=== PATIENT | male | born 1960 | race Caucasian/White ===

== ENCOUNTER 2021-07-25 09:39 | Outpatient (CLI) | payer SELFPAY ==
--- NOTE | 2021-07-25 | IMM_PTH ---
PATIENT: SANJANA MIRANDA LOC: [facility] U#:[id number] AGE/SX: 60/M ROOM: RE07/25/[address]: Dr. Anselmo Rausch MD : 1960 BED: DIS: 07/25/2021 SPEC #: [id number] RECD: 07/26/21 11:56 STATUS: AMNA REMari #: [id number] LIAT: 07/25/21 00:[address]: Anselmo Rausch DEPT: IMMUNOHISTOCHEMISTRY RECD BY: Zoie Strickland ENTERED: 07/26/21 11:57 SP TYPE: IMMUNO OTHR DR: BRIANNE Leslie Tissues: Neck, NOS Procedures: CD20 (add) CD3 (add) CD43 (add) CD45 (add) CD5 (add) CD79A (add) Pankeratin (initial) PHYSICIAN & INSTITUTION [place] [id number] SPECIMEN INFORMATION: Tissue Source: Left neck mass Clinical Info: Left neck mass Specimen Number: [id number] CPT code: 31845, 24163 x6 METHODOLOGY: Deparaffinized sections of prefer/formalin-fixed tissue or PAP/DQ stained slides are incubated with monoclonal/polyclonal antibodies/oligonucleotide probes. Localization is made via biotin free immunoperoxidase method. Appropriate controls are performed and reacted as expected. Results on target cell population are indicated in the following table: RESULTS: ANTIBODY / CLONE RESULT AE1-3 (AE1/AE3/PCK26) negative CD3 (PS1) negative CD5 (SP10) negative CD20 (L26) positive CD43 (L60) positive, focal CD45 (RP2/18) positive CD79a (11E3) positive These tests were developed and their performance characteristics determined by [facility]. They may not have been cleared or approved by the U.S. Food and Drug Administration. The FDA has determined that such clearance or approval is not necessary. The above immunohistochemical/dualISH markers are ordered and reviewed by the Pathologist. INTERPRETATION: Left neck mass, fine needle aspiration: Consistent with atypical B-cell lymphoproliferative disorder. AM:mike 07/27/2021
--- NOTE | 2021-07-25 10:00 | ASPOS_PTH ---
PATIENT: SANJANA MIRANDA LOC: [facility] U#:[id number] AGE/SX: 60/M ROOM: RE07/25/[address]: Dr. Anselmo Rausch MD : 1960 BED: DIS: 07/25/2021 SPEC #: [id number] RECD: 07/25/21 10:43 STATUS: AMNA COURTNEY #: [id number] LIAT: 07/25/21 10:[address]: Anselmo Rausch DEPT: CYTOLOGY RECD BY: Becca Bernard ENTERED: 07/25/21 10:44 SP TYPE: ASP HERE OTHR DR: BRIANNE Leslie Tissues: Neck, NOS Procedures: Surgery Specimen Level IV Cytology Other Fine Needle Asp on Site HEADER OPERATION: Fine needle aspiration left neck mass PRE-OP DIAGNOSIS: Left neck mass TISSUE SUBMITTED: Left neck mass FNA DIAGNOSIS CYTOLOGY Fine needle aspiration, left neck mass (smears and cell block): B-cell lymphoma, See Comment. AM/am 3/16/22 COMMENT The specimen is evaluated at the time of FNA by Dr. Gasca. Immediate Evaluation = Polymorphous lymphocytes present. Immunohistochemistry ([id number]) supports the above diagnosis. 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 The differential diagnosis includes follicular lymphoma, Burkitt lymphoma and diffuse large B-cell lymphoma. The cell size is variable but consists primarily of medium sized lymphocytes. The complete FLOW report is in EMR. FISH analysis for Bcl2, Bcl6 and MYC is pending and will be reported as an addendum CYTOLOGY STUDY Slides are reviewed. CYTOLOGY GROSS Received is 0.25 ml of reddish fluid labeled with the patient's name, and designated left neck mass. Three imprints and three paps are made from the submitted fluid and the rest is added to CytoLyt for cell block preparation. Submitted for cytology study. / mike 07/25/2021 TC:0 CPT:
== END 2021-07-25 23:59 | disposition home or self-care (01) ==
LOC: LAB 09:43
PROVIDERS: PCP Physician Assistant; Visit Provider Otolaryngology
DX: C85.11 Unspecified B-cell lymphoma, lymph nodes of head, face, and neck (principal)
CPT/HCPCS: 10021; 88161; 88305; 88341; 88342

== ENCOUNTER 2021-08-29 08:35 | Day surgery (SDC) | payer SELFPAY ==
--- NOTE | 2021-08-29 | IMM_PTH ---
PATIENT: SANJANA MIRANDA LOC: [facility] [place] U#:[id number] AGE/SX: 60/M ROOM: RE08/29/[address]: Dr. Anselmo Rausch MD : 1960 BED: DIS: 08/29/2021 SPEC #: [id number] RECD: 08/30/21 12:24 STATUS: AMNA REQ #: [id number] LIAT: 08/29/21 00:[address]: Anselmo Rausch DEPT: IMMUNOHISTOCHEMISTRY RECD BY: Zoie Strickland ENTERED: 08/30/21 12:27 SP TYPE: IMMUNO OTHR DR: BRIANNE Leslie Tissues: B - Neck, NOS Procedures: BCL-2 (add) BCL-6 (add) CD10 (add) CD138 (add) CD15 (add) CD20 (add) CD23 (add) CD3 (add) CD30 (add) CD43 (add) CD45 (add) CD5 (add) CD79A (add) CYCLIN (add) KAPPA (add) KI-67 (add) LAMBDA (add) MUM1 (add) C-MYC (add) Pankeratin (initial) PHYSICIAN & INSTITUTION [place] [id number] SPECIMEN INFORMATION: Tissue Source: B ? Left neck mass Clinical Info: Localized swelling, mass and lump neck Specimen Number: [id number] CPT code: 39672, 23102 x19 METHODOLOGY: Deparaffinized sections of prefer/formalin-fixed tissue or PAP/DQ stained slides are incubated with monoclonal/polyclonal antibodies/oligonucleotide probes. Localization is made via biotin free immunoperoxidase method. Appropriate controls are performed and reacted as expected. Results on target cell population are indicated in the following table: RESULTS: ANTIBODY / CLONE RESULT Block B AE1-3 (AE1/AE3/PCK26) negative CD3 (PS1) negative CD5 (SP10) negative CD10 (56C6) positive CD15 (MMA) negative CD20 (L26) positive CD23 (1B12) negative CD30 (Farhad-H2) negative CD43 (L60) positive CD45 (RP2/18) positive CD79a (11E3) positive CD138 (B-A38) negative BCL-2 (bcl-2/100/D5) positive BCL-6 (IU767U/A8) positive Cyclin D1/BCL-1 (SP4) negative MUM1 (MRQ-43) negative C-MYC (Y69) negative Likely (polyclonal) negative Lambda (polyclonal) negative Ki-67 (30-9) positive, moderate These tests were developed and their performance characteristics determined by [facility]. They may not have been cleared or approved by the U.S. Food and Drug Administration. The FDA has determined that such clearance or approval is not necessary. The above immunohistochemical/dualISH markers are ordered and reviewed by the Pathologist. INTERPRETATION: B. Left neck mass, biopsy: Consistent with B-cell lymphoma, germinal center origin (follicular lymphoma). AM:mike 08/31/2021 Case has been reviewed in consultation with Dr. Lopez who concurs with the above diagnosis. IDC:SJ
--- NOTE | 2021-08-29 | MASS_PTH ---
PATIENT: SANJANA MIRANDA [place] [facility] [place]#:[id number] AGE/SX: 60/M ROOM: RE08/29/[address]: Dr. Anselmo Rausch MD : 1960 BED: DIS: 08/29/2021 SPEC #: [id number] RECD: 08/29/21 10:30 STATUS: AMNA ROZ #: [id number] LIAT: 08/29/21 00:[address]: Anselmo Rausch DEPT: SURGICAL PATHOLOGY RECD BY: Zoie Strickland ENTERED: 08/29/21 11:06 SP TYPE: Mass OTHR DR: BRIANNE Leslie Tissues: A - Neck, NOS B - Neck, NOS Procedures: Frozen Section (charge) Special Stain Group II Surgery Specimen Level IV Imprint (control) HEADER OPERATION: Excision neck mass PRE-OP DIAGNOSIS: Localized swelling, mass and lump neck TISSUE SUBMITTED: A ? Left neck mass, FS, B ? Left neck mass FROZEN SECTION DIAGNOSIS A. Left neck mass, biopsy: Atypical lymphoid tissue. AM: 08/29/2021 MICROSCOPIC DIAGNOSIS A. Left neck mass, biopsy: Large B-cell lymphoma center cell origin. B. Left neck mass, biopsy: Large B-cell lymphoma center cell origin. See comment. AM:mike 08/30/2021 COMMENT B. The specimen is evaluated at the time of touch preps by Dr. Gasca. Immediate Evaluation = Atypical lymphoid tissue present. Tissue is adequate for analysis. B. Immunohistochemistry ([id number]) supports the above diagnosis. FLOW analysis reveals a B-cell lymphoma, large cell type with germinal center origin. Complete report is in EMR. Case has been reviewed in consultation with Dr. Lopez who concurs with the above diagnosis. IDC:SJ MICROSCOPIC DESCRIPTION Slides are reviewed. GROSS DESCRIPTION A - Received fresh for frozen section consultation labeled with the patient's name is a specimen designated left neck mass. The specimen consists of two irregular fragments of pink-hickman soft tissue measuring in aggregate 1.2 x 1 x 0.1 cm. The specimen is submitted in its entirety for frozen section consultation in one block. / AM: 08/29/2021 B - Received fresh for OR consultation labeled with the patient's name is a specimen designated left neck mass. The specimen consists of two irregular fragments of pink-hickman soft tissue measuring in aggregate 1 x 0.5 x 0.1 cm. [employer] touch prep smears (two smears) are prepared. Portions of the tissue are submitted for flow cytometry analysis. The remainder of the tissue is submitted in its entirety in one block for permanent sections. / AM: 08/29/2021 TC:0 [facility]:[id number] x2, [id number], [id number], [id number] ADDENDUM ADDENDUM ADDENDUM ADDENDUM ADDENDUM ADDENDUM ADDENDUM ADDENDUM ADDENDUM ADDENDUM 07/09/2023 09:38 ADDENDUM 07/09/2023 09:38 ADDENDUM 07/09/2023 09:38 ADDENDUM 07/09/2023 09:38 ADDENDUM 07/09/2023 09:38 This addendum is added to incorporate an outside pathology consultation report. The case was examined at [facility] (#[id number]) and the following diagnosis was rendered. A & B. Left neck mass, excisional biopsy: Mature aggressive B-Cell lymphoma. Please see complete above mentioned consultation report in EMR
[2021-08-29] MEDS: Lactated Ringers 1,000 ML 15 ML IV ×2 (08:55→11:01)
[2021-08-29 09:01] VITALS: BP 131/83; PULSE 70; RESP 16; TEMP 36.3; O2SAT 99; BMI 30.9
--- NOTE | 2021-08-29 09:13 | EKG12_ITS ---
Test Reason : PRE-OP Blood Pressure : / mmHG Vent. Rate : 064 BPM Atrial Rate : 064 BPM P-R Int : 192 ms QRS Dur : 090 ms QT Int : 396 ms P-R-T Axes : 018 052 059 degrees QTc Int : 408 ms Normal sinus rhythm Normal ECG No previous ECGs available Confirmed by HEIKE RIOS, NAZIA ([id number]), newspaper photo editor JESSICA LORENZ ([id number]) on 09/02/2021 5:50:17 AM Referred By: ANTHONY Confirmed By:KEVIN BURROUGHS MD
[2021-08-29] MEDS: Lidocaine 1% /Epi 1:100 (20ml) 20 ML Vial (09:30)
--- NOTE | 2021-08-29 09:38 | PCM.DC.SUM ---
Providers Primary Care Physician: BRIANNE Leslie Reason For Visit: EXC L NECK MASS Medications at Discharge Home Medications NK 08/22/21 Weight / BMI Weight Weight: 92.4 kg Body Mass Index (BMI) 30.9 D/C Instructions Discharge Diet: No restrictions Additional Dressing/Incision Instructions: Keep dressing dry. Reapply gauze if necessary but do not remove. Please Follow Up With: Anselmo Rausch MD When: tomorrow Meaningful Use Info Meaningful Use Diagnoses (Choose all that apply): None applicable Discharge Plan Admission Attending Provider: Anselmo Rausch Primary Care Provider: Ramon Miller Discharge Orders/Prescriptions Prescriptions: No Action NK RF: 0
--- NOTE | 2021-08-29 11:04 | OP.PCM_ITS ---
Report of Operation Date of Procedure: 08/29/21 Pre-Operative Diagnosis: left neck mass Post-Operative Diagnosis: same Surgery/Procedure Performed:: Open neck biopsy/excision Surgeon: Anselmo Rausch Type of Anesthesia: General Anesthesiologist: Troy Whitten Drains: 1 macario Estimated Blood Loss (mL): minimal Description of Procedure: The patient was taken to the operating room on 08/29/2021. He was placed in the supine position on the operating room table. He was given sufficient general anesthesia. The left neck was prepped and draped sterilely. 1% lidocaine with epinephrine was injected into the skin overlying the intended incision. After sufficient vasoconstriction, an incision was made in the skin using a 15 blade. This was carried down through the skin and into the subcutaneous tissue. Hemostasis was achieved with monopolar cautery. Next, blunt dissection was used until the platysma was identified. The platysma was then incised sharply with a 15 blade. Subplatysmal dissection was carried out using finger dissection. A vein was clamped cut and ligated using 2-0 silk. I then used sharp dissection to establish a plane on the lateral aspect of the mass. Using sharp dissection as well as some blunt dissection I was able to elucidate the anterior posterior and inferior and superior margins. I then incised into the mass with a 15 blade and sent this for frozen section to determine the adequacy of the specimen. I eventually heard back from pathology that the specimen was adequate. Hemostasis was achieved with bipolar cautery. Next, I took more specimen and sent this for lymph node protocol in saline. I then irrigated the wound with saline. A [place]ch[place] was placed into the wound. The platysma was then closed with interrupted 4-0 chromic. Subcutaneous tissue was closed with interrupted 4-0 chromic. Skin was closed with a 5-0 running nylon. Bacitracin and a pressure dressing were then applied. Patient was then awoken brought to recovery room in stable condition. Blood loss minimal, replacement none. Sponge, needle and instrument count were correct at the end the procedure.
[2021-08-29 11:09] VITALS: BP 113/77; BP 131/83; PULSE 84; RESP 16; TEMP 36.3; O2SAT 98
[2021-08-29 11:15] VITALS: BP 110/71; BP 131/83; PULSE 83; RESP 16; O2SAT 94
[2021-08-29 11:30] VITALS: BP 109/69; BP 131/83; PULSE 78; RESP 16; O2SAT 97
[2021-08-29 11:45] VITALS: BP 110/62; BP 131/83; PULSE 76; RESP 16; TEMP 36.4; O2SAT 98
[2021-08-29] MEDS: HYDROcodone Bitartrate/Apap 5/325 Tablet PO (12:11)
[2021-08-29 12:57] VITALS: BP 131/83; BP 140/83; PULSE 60; RESP 18; TEMP 36.3; O2SAT 98
== END 2021-08-29 13:02 | disposition home or self-care (01) ==
LOC: SDC 08:40 → AC 08:42
PROVIDERS: PCP Physician Assistant; Visit Provider Otolaryngology
PROC: (CPT 21556; principal; 2021-08-29 09:45)
DX: C85.11 Unspecified B-cell lymphoma, lymph nodes of head, face, and neck (principal); Z28.310 Unvaccinated for COVID-19; Z28.9 Immunization not carried out for unspecified reason; Z20.822 Contact with and (suspected) exposure to COVID-19; Z87.891 Personal history of nicotine dependence
CPT/HCPCS: 21556; 00300; 87426; 88305; 88313; 88331; 88341; 88342; 93005; J7120; J2405

== ENCOUNTER → 2021-08-31 | Outpatient (CLI) | payer SELFPAY ==
--- NOTE | 2021-08-31 09:00 | PET_ITS ---
STUDY: WHOLE-BODY PET/CT SCAN REASON FOR EXAM: Male, 60 years old. FOLLICULAR LYMPHOMA RADIATION DOSAGE (If Supplied By Facility): CTDIvol = ( ) mGy, DLP = ( ) mGycm. Individualized dose optimization techniques were used for this CT.? TECHNIQUE: Blood GLUCOSE level measured at 109. Whole body PET scans performed after administration of 12.72 mCi of F-18 FDG. Multiplanar imaging obtained along with simultaneous noncontrast CT scan. COMPARISON: None. FINDINGS: There is an abnormal 2.85 x 2.78 cm lymph node in the left neck just anterior to the sternocleidomastoid muscle. There is no disruption of the fat planes or necrotic center but it shows abnormal PET uptake measuring at 16. This is consistent with a metabolic active neoplasm. There is no other suspicious increased PET activity noted. There is normal physiologic uptake in the brain, salivary glands, heart, liver, spleen, GI and systems. The limited noncontrasted CT scan again shows the suspicious left neck lymph node on images 61 through 82. There is some subcutaneous emphysema adjacent to the lower aspect of this mass suggesting there may have been recent biopsy. There is no suspicious axillary, mediastinal, or perihilar adenopathy. Lung saavedra show chronic interstitial changes without a suspicious noncalcified mass or nodule. Cuts through the abdomen and pelvis show fatty infiltration of the liver without a discrete lesion. Solid organs are otherwise unremarkable. No suspicious mesenteric or retroperitoneal adenopathy. Bony structures show degenerative change PET/PET/CT Tumor Base -Thigh Init IMPRESSION: Abnormal intense PET uptake in a left neck lymph node just posterior to the mandible and anterior to the sternocleidomastoid muscle. Uptake level measures 16 consistent with a metabolically active neoplastic process. No other suspicious increased PET activity noted Fatty liver Electronically Signed: Jeffrey Schwab MD at 14:01 EDT ,
== END | disposition home or self-care (01) ==
LOC: ONC 08:42
PROVIDERS: PCP Physician Assistant; Referring Provider Internal Medicine Hematology & Oncology; Visit Provider Internal Medicine Hematology & Oncology
DX: C82.91 Follicular lymphoma, unspecified, lymph nodes of head, face, and neck (principal)
CPT/HCPCS: 78815; A9588